=== PATIENT | female | born 1990 | race Two or more races ===

== ENCOUNTER 2024-03-25 16:25 | Emergency (ER) | payer MEDICAID, SELFPAY ==
--- NOTE | 2024-03-25 16:40 | EDNOTE_ITS ---
Nausea/Vomit./Diarrhea-RME/HPI General Chief complaint: Nausea/Vomiting/Diarrhea Stated complaint: DIARRHEA X YESTERDAY WITH ABD PAIN TODAY Time Seen by Provider: 03/25/24 16:33 Arrival date/time: 03/25/24 16:25 33-year-old female with history significant for cholecystectomy gastric bypass presents the emergency department complaints of abdominal cramping and diarrhea patient report symptom started last night Limitations: no limitations Related Data Home Medications ?Medication ?Instructions ?Recorded ?Confirmed prenat.vits,joseluis,[id number] 1 tab PO QDAY 09/08/22 11/01/22 ferrous sulfate 325 mg (65 mg 325 mg PO QDAY 10/17/22 11/01/22 iron) tablet folic acid 800 mcg tablet 0.8 mg PO QDAY 10/17/22 11/01/22 Previous Rx's ?Medication ?Instructions ?Recorded acetaminophen 500 mg tablet 1,000 mg (2 x 500 mg) PO TID PRN 03/07/23 (Tylenol Extra Strength) fever or pain #30 tabs ondansetron 4 mg disintegrating 4 mg PO Q8H PRN nausea and 03/07/23 tablet vomiting #15 tabs ibuprofen 600 mg tablet 600 mg PO Q6H #30 tabs 03/25/24 loperamide 2 mg capsule (Imodium 2 mg PO Q6H PRN loose stool #14 03/25/24 A-D) caps metoclopramide HCl 10 mg tablet 10 mg PO Q6H PRN nausea and 03/25/24 (Reglan) vomiting #30 tabs Allergies Allergy/AdvReac Type Severity Reaction Status Date / Time No Known Allergies Allergy Verified 03/25/24 16:26 Review of Systems Review of Systems Systems Reviewed: All systems reviewed, normal except as documented Constitutional Constitutional: Reports system reviewed and no additional complaints, except as documented, Denies fever(s) and Denies headache(s) Eyes Eyes: Reports system reviewed and no additional complaints, except as documented and Denies blurry vision ENT Ears, Nose, Mouth, and Throat: Reports system reviewed and no additional complaints, except as documented, Denies headache(s), Denies nasal congestion and Denies nasal discharge Cardiovascular Cardiovascular: Reports system reviewed and no additional complaints, except as documented, Denies chest pain and Denies dyspnea Respiratory Respiratory: Reports system reviewed and no additional complaints, except as documented, Denies chest congestion, Denies cough and Denies dyspnea Gastrointestinal Gastrointestinal: Reports system reviewed and no additional complaints, except as documented, Reports abdominal pain, Reports cramping, Reports loose stools, Reports nausea and Denies vomiting Integumentary/Breasts Skin/Breast: Reports system reviewed and no additional complaints, except as documented and Denies rash Neurologic Neurologic: Reports system reviewed and no additional complaints, except as documented, Reports as per HPI and Denies headache(s) Past Medical History Past Medical History NEUROLOGIC: Negative Neurological Disorders CARDIAC: Negative Cardiac Disorders ED Exam General Limitations: Present no limitations General appearance: Present alert and in no apparent distress Head Head exam: Present atraumatic Eye Eye exam: Present normal appearance, PERRL and EOMI; Absent conjunctival injection ENT ENT exam: Present normal exam, normal oropharynx and mucous membranes moist Neck Neck exam: Present normal inspection, full ROM and trachea midline Chest Chest inspection: Present normal inspection and symmetric chest wall rise Respiratory Respiratory exam: Present normal lung sounds bilaterally; Absent respiratory distress or wheezes Cardiovascular Cardiovascular exam: Present regular rate, normal rhythm and normal heart sounds Abdominal Exam Abdominal exam: Present soft and normal bowel sounds; Absent distention, tenderness, guarding, rebound, rigidity or tenderness at McBurney's Point Abdominal tenderness: Absent RLQ Extremities Exam Extremities exam: Present normal inspection and full ROM Back Exam Back exam: Present normal inspection and full ROM Neurological Exam Neurological exam: Present alert, oriented X3 and CN II-XII intact Psychiatric Psychiatric exam: Present normal affect and normal mood Skin Skin exam: Present warm, dry, intact and normal color Course Quality Measures none Vital Signs Vital signs: Vital Signs Temperature 97.9 F 03/25/24 16:42 Pulse Rate 78 03/25/24 16:42 Respiratory Rate 18 03/25/24 16:42 Blood Pressure 108/75 03/25/24 16:42 Pulse Oximetry (%) 99 03/25/24 16:42 Oxygen Delivery Method Room Air 03/25/24 16:42 O2 saturation 99% room air within normal limits Nausea/Vomiting/Diarrhea MDM Narrative MDM Narrative:: 33-year-old female with history significant for cholecystectomy gastric bypass presents the emergency department complaints of abdominal cramping and diarrhea patient report symptom started last night On exam patient well-appearing patient does not appear ill or toxic in no acute distress On exam patient is nontender abdomen I believe the patient has gastroenteritis Patient will be treated with outpatient medication instructed to follow-up with primary care doctor no I did explain to the patient if her symptoms persist or worsen she should return for lab work imaging and further evaluation Patient data External records reviewed:: [facility] previous records Clinical information provided by:: patient Social determinants that could affect healthcare access:: none Patient has the following chronic illnesses:: See history How is presenting disease/condition affected by chronic disease/condition?: uneffected by Evaluation data The following diagnostics were reviewed and interpreted by me:: other (specify) (N/A) Lab and/or radiology exams considered but not ordered:: Consider not ordered Interpretation Summary: N/A Medications / Prescriptions Medications / Prescriptions considered but not ordered:: Given Medication administrations:: Given Consultations Consultation(s) initiated? (list below): No Diagnosis Nausea Differential Diagnosis: traveler's diarrhea, food poisoning and gastroenteritis Most likely diagnosis given after review of the tests above:: Gastroenteritis Admission Indicated Admission indicated?: not indicated Admission Request Was there a request for admission?: No Disposition Plan Disposition Plan: Discharge Discharge Attestation Discharge Attestation: The patient and all family members were given an opportunity to ask questions and understood the discharge instructions. Discharge instructions specifically effects, indications for sooner follow up or return to the emergency department, and the expected course of current diagnosis. Patient condition: Stable Discharge Plan Plan Patient Disposition: HOME (Self Care) Disposition Comment: Stable Prescriptions/Referrals Prescriptions/Med Rec: New loperamide [Imodium A-D] 2 mg capsule 2 mg PO Q6H PRN (Reason: loose stool) Qty: 14 0RF ibuprofen 600 mg tablet 600 mg PO Q6H Qty: 30 0RF metoclopramide HCl [Reglan] 10 mg tablet 10 mg PO Q6H PRN (Reason: nausea and vomiting) Qty: 30 0RF No Action ferrous sulfate 325 mg (65 mg iron) Tablet 325 mg PO QDAY folic acid 800 mcg Tablet 0.8 mg PO QDAY Vitamin Tablet 1 tab PO QDAY acetaminophen [Tylenol Extra Strength] 500 mg tablet 1,000 mg PO TID PRN (Reason: fever or pain) Qty: 30 0RF ondansetron 4 mg tablet,disintegrating 4 mg PO Q8H PRN (Reason: nausea and vomiting) Qty: 15 0RF Problem List Clinical Impression: Gastroenteritis Patient/Caregiver Discharge Instructions Education Materials: How the Colon Works Print Language: [place] Stand Alone Forms: Nataly Award Info., Patient Portal Info Letter PA/[employer] DEVELOPER Supervising Physician PA/[employer] DEVELOPER Supervising Physician: Dr Landeros
[2024-03-25 16:42] VITALS: BP 108/75; PULSE 78; RESP 18; TEMP 36.6; O2SAT 99; BMI 29.2
== END 2024-03-25 17:01 | disposition home or self-care (01) ==
LOC: SERX 16:47
PROVIDERS: Emergency Provider Emergency Medicine; PCP Family Medicine
DX: K52.9 Noninfective gastroenteritis and colitis, unspecified (principal)
CPT/HCPCS: 99281